=== PATIENT | female | born 1940 | race Caucasian/White ===

== ENCOUNTER 2021-09-23 12:37 | Emergency (ER) | payer MEDICARE, SELFPAY ==
--- NOTE | ~2021-09-23 | XR_ITS ---
XR foot RT min 3V 09/23/2021 13:57 INDICATION: Foot swelling PROCEDURE: 4 views right foot COMPARISON: No prior studies for comparison. FINDINGS: Fracture, dislocation or subluxation is not identified. Lisfranc joint intact. 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 The soft tissues appear within normal limits. No foreign bodies are identified. Osteopenia. IMPRESSION: 1: NO ACUTE BONE OR JOINT ABNORMALITY IDENTIFIED. Reviewed, dictated and finalized at location A. MOUNTER
--- NOTE | ~2021-09-23 | US_ITS ---
EXAMINATION: US venous doppler LE RT DATE: 09/23/2021 13:46 INDICATION: Right lower limb swelling. TECHNIQUE: Grayscale ultrasound images without and with compression and Doppler ultrasound images of the right lower extremity veins were obtained. COMPARISON: None. FINDINGS: The visualized portions of right common femoral vein, profunda (deep) femoral vein, femoral vein, pop liteal vein, peroneal veins, posterior tibial veins, and greater saphenous vein outflow are patent. IMPRESSION: 1. No deep venous thrombosis. Reviewed, dictated and finalized at location A. [employer]
[2021-09-23 12:39] VITALS: BP 145/62; PULSE 93; RESP 17; TEMP 36.4; O2SAT 98
--- NOTE | 2021-09-23 14:20 | ED.GENADULT ---
HPI - General Adult General Chief complaint: Extremity Injury, Lower <Jocelyn Blandon PA-C - Last Filed: 09/23/21 15:37> Stated complaint: Right Foot Redness, Post-OP <Jocelyn Blandon PA-C - Last Filed: 09/23/21 15:37> Time Seen by Provider: 09/23/21 12:46 <Jocelyn Blandon PA-C - Last Filed: 09/23/21 15:37> Source: patient <Jocelyn Blandon PA-C - Last Filed: 09/23/21 15:37> Mode of arrival: ambulatory <Jocelyn Blandon PA-C - Last Filed: 09/23/21 15:37> Limitations: no limitations <Jocelyn Blandon PA-C - Last Filed: 09/23/21 15:37> History of Present Illness HPI narrative: Patient is an 81-year-old female with chief complaint of swelling to the right ankle and foot that has worsened over the past 2 days. Patient reports having her right hip replaced [address] Narvaez. 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 Patient reports that she has been taking her Eliquis as directed and has not missed any doses. She denies any shortness of breath, chest pain, fever, chills, nausea, vomiting, diarrhea or any other symptoms. <Jocelyn Blandon PA-C - Last Filed: 09/23/21 15:37> Related Data Allergies/adverse reactions: Allergies Allergy/AdvReac Type Severity Reaction Status Date / Time No Known Allergies Allergy Verified 09/23/21 12:39 <Jocelyn Blandon PA-C - Last Filed: 09/23/21 15:37> Review of Systems Review of Systems: CONSTITUTIONAL: Denies fever, chills, or sweats. EYES: Denies visual changes, redness, or discharge. ENT: Denies rhinorrhea, congestion, sore throat, or otalgia. CARDIOVASCULAR: Denies chest pain, palpitations, or edema. RESPIRATORY: Denies cough or dyspnea. GASTROINTESTINAL: Denies abdominal pain, nausea, vomiting, or diarrhea. GENITOURINARY: Denies dysuria or hematuria. SKIN: Denies rash or itching. MUSCULOSKELETAL: Reports right foot and ankle swelling Denies back pain, myalgia, or joint pain NEUROLOGIC: Denies headache, numbness, dizziness, or weakness. PSYCHIATRIC: Denies anxiety or depression. <Jocelyn Blandon PA-C - Last Filed: 09/23/21 15:37> Exam Narrative: GENERAL: Well-appearing, well-nourished.Elderly. HEAD: Normocephalic, atraumatic. EYES: PERRLA and EOMI. NECK: Supple. No adenopathy or masses. No vertebral tenderness or loss of ROM. CHEST: Clear to auscultation. No respiratory distress. No wheezes rales or rhonchi HEART: Regular rate and rhythm. EXTREMITIES: Swelling with bluish discoloration to right ankle and foot. Patient DP pulse palpable. Cap refill intact. No pain or tightness in the calf or thigh. Venous stasis changes noted. SKIN: Warm, dry, no rash. NEURO: No focal deficits. Alert and oriented x3. PSYCH: Normal mood and affect. <Jocelyn Blandon PA-C - Last Filed: 09/23/21 15:37> Course Vital Signs Vital signs: Vital Signs Temperature 97.6 F 09/23/21 12:39 Pulse Rate 93 09/23/21 12:39 Respiratory Rate 17 09/23/21 12:39 Blood Pressure 145/62 H 09/23/21 12:39 Pulse Oximetry 98 09/23/21 12:39 Temperature 97.6 F 09/23/21 12:39 Pulse Rate 93 09/23/21 12:39 Respiratory Rate 17 09/23/21 12:39 Blood Pressure 145/62 H 09/23/21 12:39 Pulse Oximetry 98 09/23/21 12:39 <Jocelyn Blandon PA-C - Last Filed: 09/23/21 15:37> Medical Decision Making MDM Narrative Medical decision making narrative: No DVT or fractures noted. Foot is not erythematous or warm to the touch suggesting cellulitis. No drainage from the dry skin opening. No sign of infection. Patient instructed to elevate extremity and to follow up with chemical operations specialist for further evaluation and management. <Jocelyn Blandon PA-C - Last Filed: 09/23/21 15:37> Differential Diagnosis Differential Diagnosis:
== END 2021-09-23 14:45 | disposition home or self-care (01) ==
PROVIDERS: Emergency Provider General Practice; PCP Internal Medicine
DX: M79.89 Other specified soft tissue disorders (principal); Z79.01 Long term (current) use of anticoagulants; Z96.643 Presence of artificial hip joint, bilateral; Z98.890 Other specified postprocedural states
CPT/HCPCS: 73630; 93971; 99284

== ENCOUNTER 2025-06-30 14:14 | Outpatient (CLI) | payer MEDICARE, MEDICAID, SELFPAY ==
--- NOTE | ~2025-06-30 | CT_ITS ---
EXAMINATION: CT abdomen pelvis wo con, 06/30/2025 14:15 CDT HISTORY: Lower abd pain, hx shingles March COMPARISON: No comparisons available. TECHNIQUE: CT scan of the abdomen and pelvis was performed without IV contrast. One or more of the following dose reduction techniques were used: automated exposure control, adjustment of the mA and/or kV according to patient size, use of iterative reconstruction technique. Unless otherwise stated, incidental findings do not require dedicated follow up imaging FINDINGS: CT abdomen: LUNG BASES: Lung bases demonstrate scattered calcified granulomas. LIVER: There is pneumobilia throughout the left and right lobes of the liver. SPLEEN: Punctate calcified splenic granulomas.. KIDNEYS: Right Kidney: Unremarkable. No calculi. No hydronephrosis. Left Kidney: Unremarkable. No calculi. No hydronephrosis ADRENAL GLANDS: Right adrenal nodule 1.2 x 1.2 cm Hounsfield units 3 probable benign adrenal adenoma. PANCREAS: Unremarkable. GALLBLADDER/BILIARY: Postcholecystectomy. STOMACH AND ESOPHAGUS: Visualized stomach and esophagus within normal limits. BOWEL/MESENTERY: Moderate fecal content. Moderate diverticulosis. No colitis or diverticulitis. Appendix prominent: No periappendiceal inflammation. No stranding within the mesentery. No thickening or dilated loops of small bowel. ADENOPATHY/RETROPERITONEUM: No lymphadenopathy. AORTA/VASCULATURE: Atherosclerotic changes of the aorta without aneurysm. FREE FLUID OR FREE AIR: No free fluid.. CT pelvis: SOLID ORGANS/REPRODUCTIVE: Uterus atrophic. Large cystic right ovarian lesion measures 5.7 x 5 cm incompletely characterized, pelvic ultrasound recommended. BLADDER: Artifact limits evaluation of the bladder. OSSEOUS STRUCTURES: Bilateral hip arthroplasties. No sclerotic or lytic lesions. OVERLYING SOFT TISSUES: Unremarkable. IMPRESSION: 1. No acute intra-abdominal process. 2. Incidental findings above Reviewed, dictated and finalized at location P.
== END 2025-06-30 14:15 | disposition home or self-care (01) ==
LOC: MICIMG 14:15
PROVIDERS: PCP Internal Medicine; Visit Provider Internal Medicine
DX: R10.30 Lower abdominal pain, unspecified (principal)
CPT/HCPCS: 74176

== ENCOUNTER 2025-07-10 14:11 | Outpatient (CLI) | payer MEDICARE, MEDICAID, SELFPAY ==
--- NOTE | ~2025-07-10 | US_ITS ---
EXAMINATION: US pelvic complete DATE: 07/10/2025 14:35 INDICATION: Right ovarian cyst. TECHNIQUE: Multiple transabdominal sonographic images of the pelvis were obtained. COMPARISON: CT abdomen and pelvis 06/30/2025 FINDINGS: The uterus measures 3.4 x 1.6 x 3.3 cm. There is no free fluid in the pelvis. The endometrial complex measures 3 mm in thickness. There is a 7.0 x 6.2 x 4.5 cm cyst in the right adnexa. The left ovary is not visualized. IMPRESSION: 1. 7.0 cm cyst in the right adnexa, likely benign. Consider pelvis ultrasound in one year. Reviewed, dictated and finalized at location E. IMPRESSION: 1. 7.0 cm cyst in the right adnexa, likely benign. Consider pelvis ultrasound i n one year.
== END 2025-07-10 14:12 | disposition home or self-care (01) ==
LOC: MICIMG 14:12
PROVIDERS: PCP Internal Medicine; Visit Provider Internal Medicine
DX: N83.201 Unspecified ovarian cyst, right side (principal)
CPT/HCPCS: 76856